=== PATIENT | male | born 1990 | race Caucasian/White ===

== ENCOUNTER 2025-08-05 01:13 | Emergency (ER) | payer OTHER, SELFPAY ==
[2025-08-05 01:21] VITALS: BP 151/105
--- NOTE | 2025-08-05 01:40 | ED.GENMED ---
History of Present Illness
General
Chief Complaint: Allergic Reaction
Source: patient
Exam Limitations: none
Time Seen by Provider: 08/05/25 01:27
Nursing documentation reviewed up to this point in time: agreed with
History of Present Illness
History of Present Illness:
35-year-old male past medical history of hypertension presenting to the emergency department today with concerns of throat swelling that is noticed over the past week and a half. He has been taking Chantix over the past few weeks and thinks this
could be related. Noted that it slightly worsened today when he tried to lay down he noted some mild shortness of breath. Symptoms have resolved at this point other than mild discomfort to his throat. Has had a mild cough over the past week or so
as well.
Review of Systems
Review of Systems
Allergies reviewed?: Yes
All Other Systems: ROS reviewed and negative except as documented in HPI and ROS
Phy Exam
Physical Exam
Physical Exam:
GENERAL: Alert , in no apparent distress
EYE: pupils equal and reactive
NECK: Supple, no significant adenopathy.
ENT: Swelling to the tonsils bilaterally slight swelling to the uvula grossly patent airway no swelling to the remainder of the mucous membranes of the mouth, swollen boggy nasal turbinates o/p clr, mmm.
CARDIAC: Regular rate and rhythm .
LUNGS: Clear breath sounds bilaterally, no acute respiratory distress, no wheezes/rales/rhonchi
ABDOMEN: Soft, without focal tenderness, no r/g, no cvat
NEUROLOGICAL: Alert and oriented, no focal neuro deficits
SKIN: Warm and dry, skin intact.
MUSCULOSKELETAL: No edema, well perfused.
PSYCH: Normal and appropriate interaction.
Course
Orders/Labs/Results
Orders:
Orders
08/05/25 01:39
Dexamethasone [Decadron] 10 mg PO NOW STA
Diphenhydramine [Benadryl] 25 mg PO NOW STA
08/05/25 01:42
Rapid Strep Group A Urgent
OMAYRA Source: Throat/Pharynx
Specimen Description:
Date Specimen was Collected: 08/05/25
Time Specimen was Collected: 01:38
Vital Signs
Initial and Last Documented VS:
Initial Vital Signs
Temp Pulse Resp BP Pulse Ox
98.5 F 91 20 151/105 97
08/05/25 01:21 08/05/25 01:08/05/25 01:08/05/25 01:08/05/25 01:21
Last Documented Vital Signs
Temp Pulse Resp BP Pulse Ox
98.5 F 91 20 151/105 97
08/05/25 01:21 08/05/25 01:21 08/05/25 01:21 08/05/25 01:21 08/05/25 01:42
MDM/Problems Addressed
MDM/Problems Addressed:
35-year-old male presenting to the emergency department today with concerns of noticeable throat swelling and comfort of the past week and a half noticed slight worsening today. Has had a mild cough associated as well. Did start Chantix recently.
Here posterior pharynx mildly swollen no exudate uvula midline. Vital signs normal patient in no distress. Patient was given dose of steroid to help with symptoms rapid strep negative. Stable for outpatient management. Return precautions given.
*Pulse Oximetry
SaO2: 97
Oxygen Mode of Delivery: Room air
Patient hypoxic: no (97)
*Critical Care Note
Total Time (30-74mins, 75-104mins- exclusive of procedures): Not Applicable
ED Attending Note
-
Portions of this chart may have been created with voice recognition software.� Occasional wrong word or��sound alike� substitutions may have occurred due to the inherent limitations of voice recognition software.
Discharge Plan
Departure
Patient Disposition: Home (Routine Discharge)
Date of Disposition: 08/05/25
Time of Disposition: 02:43
Patient with high blood pressure during this ER visit?: No
Condition: Good
Covid-19: Not Applicable
Discharge Problem:
Pharyngitis
Instructions: Sore throat in adults - ED (DC)
Prescriptions:
New
prednisone 20 mg tablet
40 mg PO DAILY 4 Days Qty: 8 0RF
Activity Restrictions/Additional Instructions:
You came to the emergency department today for concerns of throat swelling. Please take this prescribed steroids and follow-up closely with the primary care doctor in the next week or so. Return for any worsening, new or concerning symptoms.
Interventions
Interventions:
*Risk Screen - Suicide Last Done: 08/05/25 01:21
*General Assessment Last Done: 08/05/25 01:21
*Neglect/Abuse Screening Last Done: 08/05/25 01:21
*ED- Fall Risk Assessment Last Done: 08/05/25 01:21
*ED COVID-19 Vaccine History Last Done: 08/05/25 01:21
ED- Cardiac Assessment Last Done: 08/05/25 01:39
ED- Pulmonary Assessment Last Done: 08/05/25 01:39
ED-Skin Assessment Last Done: 08/05/25 01:39
Discharge Date and Time
Print Language: SAMI
[2025-08-05] MEDS: DECADRON 10 MG PO (01:51)
[2025-08-05] MEDS: BENADRYL 25 MG PO (01:51)
[2025-08-05 02:50] VITALS: BP 156/108
== END 2025-08-05 02:59 | disposition home or self-care (01) ==
LOC: EMR 01:13
PROVIDERS: EMERGENCY PHYSICIAN Student in an Organized Health Care Education/Training Program; FAMILY PHYSICIAN Family Medicine
DX: J02.9 Acute pharyngitis, unspecified (principal); I10 Essential (primary) hypertension
CPT/HCPCS: 99283; 87070; 87880